=== PATIENT | male | born 1955 | race Caucasian/White ===

== ENCOUNTER 2021-06-23 07:46 | Emergency (ER) | payer BC ==
[2021-06-23 08:19] VITALS: BP 146/85; PULSE 70
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
== END 2021-06-23 09:17 | disposition home or self-care (01) ==
LOC: JP.ED 07:46
DX: L30.9 Dermatitis, unspecified (principal)
CPT/HCPCS: 99283

== ENCOUNTER 2021-10-28 10:50 | Emergency (ER) | payer BC, OTHER ==
[2021-10-28 11:12] VITALS: BP 161/71; PULSE 74
== END 2021-10-28 12:16 | disposition home or self-care (01) ==
LOC: JP.ED 10:50
DX: K64.4 Residual hemorrhoidal skin tags (principal)
CPT/HCPCS: 36415; 85025; 99283